=== PATIENT | female | born 1955 | race Caucasian/White ===

== ENCOUNTER 2023-09-07 15:19 | Outpatient (CLI) | payer MEDICARE | END 2023-09-07 15:20 | disposition home or self-care (01) | LOC: LAB 15:19 | PROVIDERS: ATTEND Nurse Practitioner Family | DX: R79.89 Other specified abnormal findings of blood chemistry (principal) | CPT/HCPCS: 36415; 83970 ==

== ENCOUNTER 2023-09-28 12:45 | Outpatient (CLI) | payer MEDICARE, OTHER ==
--- NOTE | 2023-10-01 12:37 | CT Report ---
PROCEDURE: CT brain without contrast INDICATIONS: CLUSTER ESCALERA TECHNIQUE: Helical axial CT of the brain was obtained without contrast and reformatted in multiple p lanes. Radiation dose reduction was achieved using automated exposure control or adjustment of mA and /or kV according to patient size. COMPARISON: None FINDINGS: CSF spaces: Ventricles are appropriate in size and position. No hydrocephalus. Basal cisterns unre markable. Brain: No midline shift. No intracranial masses or hemorrhage. Menjivar-white matter interface is norm al. Skull and face: Calvarium and skull base are unremarkable without suspicious lesion. Sinuses: Visualized sinuses and mastoids are clear. IMPRESSION: Unremarkable CT of the brain Reviewed by: Lorenzo Kingsley MD on 10/01/2023 11:35 AM [email or web address] Approved by: Lorenzo Kingsley MD on 10/01/2023 11:35 AM VABRENDON Station ID: [id number]
== END 2023-09-28 12:46 | disposition home or self-care (01) ==
LOC: DI 12:45
PROVIDERS: ATTEND Nurse Practitioner Family
DX: G44.009 Cluster headache syndrome, unspecified, not intractable (principal)